=== PATIENT | male | born 1955 | race Caucasian/White ===

== ENCOUNTER 2024-06-18 10:29 | Emergency (ER) | payer OTHER ==
[~2024-06-18] VITALS: Ht 180.3 cm; Wt 99.0 kg
[2024-06-18] VITALS (9 sets, daily range): BP systolic 136–168; BP diastolic 75–84
[2024-06-18] MEDS ORDERED: HYDROcodone 7.5 MG/Acetaminophen 325 MG/COMBO PO ONE (11:00)
[2024-06-18] MEDS ORDERED: CELEBREX200 MG PO (14:22)
== END 2024-06-18 14:33 | disposition home or self-care (01) | DRG 563 ==
LOC: ED 10:29
DX: S63.501A Unspecified sprain of right wrist, initial encounter (principal); W22.09XA Striking against other stationary object, initial encounter